=== PATIENT | male | born 2005 | race Caucasian/White ===

== ENCOUNTER 2024-05-21 08:47 | Outpatient (AMB) | payer OTHER, SELFPAY ==
[2024-05-21 08:52] VITALS: BP 122/78; PULSE 78; O2SAT 98; BMI 26.3
--- NOTE | 2024-05-21 08:52 | MHC.PC.OV ---
Vital Signs 05/21/24 08:52 Height 6 ft Weight 194 lb BMI 26.3 BP 122/78 Blood Pressure Location Rt brachial Position Sitting Pulse 78 Pulse Source Pulse Oximeter Pulse Oximetry (%) 98 Oxygen Delivery Method Room Air Intake Visit Reasons: New patient visit PE ok per Dr. Leahy Intake Note: Pt is here today for a New patient visit PE. Allergies kiwi Allergy (Verified 05/21/24 08:56) throat swelling Medication List - Last Reconciled 05/21/24 by Selam Leahy MD No Known Home Meds Tobacco use date assessed: 05/21/24 Dental Screening Dental Screen Date: 05/21/24 Did you have a dental visit in the last 12 months?: Yes Did you have a dental problem in the last 6 months where you did not have access to dental care?: No Was dental information given to patient?: Patient has dentist HPI New patient visit PE ok per Dr. Leahy HPI Details Pt presents for VISUALIZER PE. Pt sustained L wrist fracture on 02/25/24 was playing basketball in [place]. Patient were cast and splint and was cleared by the orthopedic surgeon to regular activity. Patient reports persistent discomfort and limited range of motion in the left wrist. He would like to apply for services. [facility] Surgical History Hx of appendectomy Hx of tonsillectomy Family History Mother No problems noted. Father No problems noted. Social History Household Members Other:: lives with mother, works for [employer] Housing: Apartment Patient Tobacco Use Status: Current someday Tobacco user Tobacco use type: Cigarette e-Cigarette/Vaping Use: Never Used service: No Current occupational status: employed Cognitive needs: No Hearing needs: No Vision needs: No Questionnaire PHQ-9 Over the last 2 weeks, how often have you been bothered by any of the following problems? 1. Little interest or pleasure in doing things: not at all 2. Feeling down, depressed, or hopeless: not at all 3. Trouble falling or staying asleep, or sleeping too much: not at all 4. Feeling tired or having little energy: not at all 5. Poor appetite or overeating: not at all 6. Feeling bad about yourself - or that you are a failure or have let yourself or your family down: not at all 7. Trouble concentrating on things, such as reading the newspaper or watching television: not at all 8. Moving or speaking so slowly that other people could have noticed. Or the opposite - being so fidgety or restless that you have been moving around a lot more than usual: not at all 9. Thoughts that you would be better off or of hurting yourself in some way: not at all Total score: 0 Depression Screening Interpretation: Negative Depression Screening Done: Yes Source: Developed by Drs. Jak Robison, Geno Argueta, Nas Coulter and colleagues, with an educational bill from [employer]. Thrive Questionnaire Date Thrive assessed: 05/21/24 I am a: Patient What is your living situation today?: I have a steady place to live Within the past 12 months, did the food you bought not last and you didn't have the money to get more?: Never true Within the past 12 months, did you worry whether your food would run out before you got money to buy more?: Never true Do you have trouble paying for medicines?: No Do you have trouble getting transportation to medical appointments?: No Do you have trouble paying your heating and electricity bill?: No Do you have trouble taking care of your child, family member or friend?: No Do you have trouble with day-to-day activities such as bathing, preparing meals, shopping, managing finances, etc.?: No Are you currently unemployed and looking for a job?: No Are you interested in more education?: No Please select the resources that you would like help with: None THRIVE Score: 0 AUDIT C Alcohol Use Questionnaire (AUDIT-C) 1. How often do you have a drink containing alcohol?: Monthly or less 2. How many drinks containing alcohol do you have on a typical day when you are drinking?: 1 or 2 3. How often do you have six or more drinks on one occasion?: Never Total Score: 1 MERCY-7 AMB Questionnaire MERCY-7 Date MERCY - 7 assessed: 05/21/24 Feeling nervous, anxious, or on edge: 0 = Not at all Not being able to stop or control worryin = Not at all Worrying too much about different things: 0 = Not at all Trouble relaxin = Not at all Being so restless that it is hard to sit still: 0 = Not at all Becoming easily annoyed or irritable: 0 = Not at all Feeling afraid as if something awful might happen: 0 = Not at all Total MERCY-7 score (0-4 normal; 5-9 mild; 10-14 moderate; 15-21 severe): 0 Source: Developed by Drs. Jak Robison, Geno Argueta, Nas Coulter and colleagues, with an educational bill from [employer]. Review of Systems Const All systems reviewed & are unremarkable except as noted in HPI and below Eyes Reports no additional complaints ENT Reports no additional complaints Card Reports no additional complaints Resp Reports no additional complaints GI Reports no additional complaints Reports no additional complaints Physical exam (Primary Care) Vital Signs: Last Vital Signs Pulse 78 05/21/24 08:52 BP 122/78 05/21/24 08:52 Pulse Ox 98 05/21/24 08:52 Oxygen Delivery Method Room Air 05/21/24 08:52 BMI result Body Mass Index 26.3 Tobacco/Smoking Status: Tobacco use Status Tobacco use date assessed 05/21/24 05/21/24 09:00 Patient Tobacco Use Status Current someday Tobacco 05/21/24 09:20 Tobacco use type Cigarette 05/21/24 09:20 e-Cigarette/Vaping Use Never Used 05/21/24 09:20 PHQ-9: PHQ-9 Score PHQ-9: Total score 0 05/21/24 09:17 Depression Screening Interpretation: Negative Thrive Assessment: Date of Thrive Assessment Date Thrive assessed 05/21/24 05/21/24 09:00 Const General: no acute distress HENMT Head: Yes normal to inspection Ears: hearing grossly normal bilaterally Face and sinus: Yes normal facial exam Throat: Yes posterior oropharynx normal Eyes General: appearance normal, both eyes and all related structures Neck Neck: Yes no lymphadenopathy and Yes supple Resp Effort & Inspection: normal respiratory effort Auscultation: clear to auscultation bilaterally Cardio Rhythm: regular rhythm Heart sounds: S1 normal heart sound present and S2 normal heart sound present GI Inspection: Yes normal to inspection Palpation (GI): Soft to palpation Percussion: Yes normal to percussion Auscultation: normal bowel sounds Extrem Other: Left wrist: decreased range of motion no soft tissue swelling and joint tenderness Assessment and Plan Assessment & Plan (1) Annual physical exam: Code(s): Z00.00 - Encounter for general adult medical examination without abnormal findings Plan: Well-balanced diet regular physical activity discussed with the patient she will return for fasting blood work (2) Left wrist fracture: Comment: 02/25/2024 Code(s): S62.102A - Fracture of unspecified carpal bone, left wrist, initial encounter for closed fracture Plan: Check x-ray, referred to PT and ortho for follow-up Orders: Orders Complete Blood Count Auto Diff Today S62.102A - Fracture of unspecified carpal bone, left wrist, initial encounter for closed fracture, Z00.00 - Encounter for general adult medical examination without abnormal findings XR wrist LT min 3V Today S62.102A - Fracture of unspecified carpal bone, left wrist, initial encounter for closed fracture Comprehensive Jeffrey. Panel Fast Today S62.102A - Fracture of unspecified carpal bone, left wrist, initial encounter for closed fracture, Z00.00 - Encounter for general adult medical examination without abnormal findings Lipid Panel Today S62.102A - Fracture of unspecified carpal bone, left wrist, initial encounter for closed fracture, Z00.00 - Encounter for general adult medical examination without abnormal findings UA w Microscopic Today S62.102A - Fracture of unspecified carpal bone, left wrist, initial encounter for closed fracture, Z00.00 - Encounter for general adult medical examination without abnormal findings PT Evaluation and Treatment Today S62.102A - Fracture of unspecified carpal bone, left wrist, initial encounter for closed fracture Referrals Orthopedics Referral S62.102A - Fracture of unspecified carpal bone, left wrist, initial encounter for closed fracture Coding Level of Care Code Est Pt Prev Care 18-39y(63504) Diagnoses Annual physical exam Z00.00 Left wrist fracture S62.102A
== END 2024-05-21 11:29 | disposition home or self-care (01) ==
LOC: HO.HMGC 08:47
PROVIDERS: Visit Provider Internal Medicine
DX: Z00.00 Encounter for general adult medical examination without abnormal findings (principal); S62.102A Fracture of unspecified carpal bone, left wrist, initial encounter for closed fracture
CPT/HCPCS: 99395

== ENCOUNTER 2024-05-21 09:28 | Outpatient (REF) | payer OTHER, SELFPAY ==
--- NOTE | ~2024-05-21 | XR_ITS ---
EXAMINATION: XR WRIST, LEFT CLINICAL INFORMATION: Wrist pain. Fracture COMPARISON: None available. TECHNIQUE: PA, lateral, and oblique views of the left wrist. FINDINGS: No fracture or destructive process. Carpal alignment is preserved. XR/XR wrist LT min 3V IMPRESSION: Negative study.
== END 2024-05-21 09:29 | disposition home or self-care (01) ==
LOC: HO.HMGCX 09:28
PROVIDERS: PCP Internal Medicine; Visit Provider Internal Medicine
DX: S62.102A Fracture of unspecified carpal bone, left wrist, initial encounter for closed fracture (principal)
CPT/HCPCS: 73110

== ENCOUNTER 2024-05-30 08:10 | Outpatient (REF) | payer OTHER, SELFPAY ==
--- NOTE | ~2024-05-30 | XR_ITS ---
EXAMINATION: XR WRIST, LEFT CLINICAL INFORMATION: Left wrist pain. COMPARISON: 05/21/2024 TECHNIQUE: PA, lateral, and oblique views of the left wrist. FINDINGS: No acute fracture, dislocation, or suspicious bony abnormalities. Alignment is normal. Carpal rows intact. No arthropathy. Normal soft tissues. XR/XR wrist LT w scaphoid IMPRESSION: Normal left wrist. Electronically signed by: Joby Hunter MD 07/25/2024 04:34 PM EDT
== END 2024-05-30 08:11 | disposition home or self-care (01) ==
LOC: HO.HOSX 08:10
PROVIDERS: PCP Internal Medicine
DX: M25.632 Stiffness of left wrist, not elsewhere classified (principal); Z87.81 Personal history of (healed) traumatic fracture
CPT/HCPCS: 73110; 99212

== ENCOUNTER 2024-05-30 08:10 | Outpatient (AMB) | payer MEDICAID, SELFPAY ==
--- NOTE | 2024-05-30 08:13 | MHC.OFFVIS ---
Vital Signs 05/30/24 08:33 Height 6 ft Weight 194 lb BMI 26.3 Handedness Right Intake Visit Reasons: FC-L wrist fracture on 02/25/24 Intake Note: Ethan is a 18 year old right hand dominant male who presents today for a left wrist fracture s/p DOI 02/25/24. Patient express he was over seas in [place] playing basketball when he jumped up to put the ball in the basket, swinging from the basket and landing on his left hand and hitting his head. He does claim that he was unconscious for a while after this injury. He was seen in the emergency room in [place] where they did x-rays, prescribed him pain medication and placed him in a cast. He also had his [place] His main complaint today is lack of mobility. Denies any pain, numbness, and tingling. Allergies kiwi Allergy (Verified 05/30/24 08:34) throat swelling HPI HPI FC-L wrist fracture on 02/25/24: Details: Patient is a 18-year-old male who presents for evaluation of left wrist fracture, date of injury 02/25/2024. The patient states that, while in [place], he was playing basketball and fell on his outstretched left hand, resulting in a left wrist fracture. Patient was treated conservatively while and [place] with casting, and did not require surgery. Today, the patient reports that not experiencing any pain, numbness, tingling, in his left wrist, however he reports that he has had diminished range of motion since being removed from cast approximately 1 month ago. Patient states that he was in a cast for approximately 2 months. Patient states that while range of motion has improved since he has returned to the gym, he is looking for any other options available to help him get back to his baseline range of motion. No other acute complaints or concerns at this time. [facility] Surgical History Hx of appendectomy Hx of tonsillectomy Family History Mother No problems noted. Father No problems noted. 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 Cognitive needs: No Hearing needs: No Vision needs: No Review of Systems Const All systems reviewed & are unremarkable except as noted in HPI and below Physical Exam Vital Signs: BMI result Body Mass Index 26.3 Const Other: Patient is alert, oriented, cooperative, and in no acute distress HEENT Head: Yes normocephalic and Yes atraumatic Resp Effort & Inspection: normal respiratory effort and able to speak in complete sentences Cardio Jugular venous distension: no JVD Neuro General: gait normal Cognition (Neuro): normal cognition Extrem Other: Patient is alert, oriented, and in no acute distress. Neuro: Median, ulnar, radial nerves motor and sensory intact and sensation is normal to the tips of all digits. Vascular: Cap refill brisk Pain: No tenderness to palpation at this time No scaphoid tenderness noted. ROM: With encouragement, the patient is able to flex and extend at the left wrist fully, but range of motion is very weak and causes shaking at the extremes of flexion and extension. Flexion and extension of the left wrist against resistance is noted to be weak. No pain or discomfort with range of motion. Skin: No lacerations or abrasions. General: No ecchymosis, erythema, or evidence of infection. Psych: Appears grossly normal Affect normal Attitude cooperative Psych Appearance: grossly normal Mental Status: mental status grossly normal Results Reviewed Results Reviewed: X-rays obtained in the office today and independently reviewed by me, Flip Kelley PA-C, demonstrate healed fracture of the left distal radius. Assessment & Plan Assessment & Plan (1) Stiffness of left wrist joint: Code(s): M25.632 - Stiffness of left wrist, not elsewhere classified Category: Medical Plan 1. Left distal radius fracture Date of injury 02/25/2024 Patient has healed from his fracture Patient is informed that in terms of bony healing, there is nothing further that needs to be done for him at this time However, patient will be referred to occupational hand therapy for range of motion and strengthening of the left wrist Patient is informed that he should continue to work on range of motion prior to receiving an appointment with occupational therapy Patient is amenable to this plan Patient will follow-up p.r.n. with any acute concerns Orders: Orders OT Evaluation and Treatment Today M25.632 - Stiffness of left wrist, not elsewhere classified XR wrist LT w scaphoid Today M25.532 - Pain in left wrist Coding Level of Care Code New Pt Level 3 (42400) Diagnoses Stiffness of left wrist joint M25.632
[2024-05-30 08:33] VITALS: BMI 26.3
== END 2024-05-30 08:46 | disposition home or self-care (01) ==
PROVIDERS: PCP Internal Medicine
DX: M25.632 Stiffness of left wrist, not elsewhere classified (principal)
CPT/HCPCS: 99203

== ENCOUNTER → 2024-05-30 08:28 | Outpatient (BNV) | payer OTHER, SELFPAY | PROVIDERS: PCP Internal Medicine; Visit Provider Radiology Diagnostic Radiology | DX: M25.532 Pain in left wrist (principal) | CPT/HCPCS: 73110 ==